=== PATIENT | male | born 1970 | race Caucasian/White ===

== ENCOUNTER → 2017-05-15 10:32 | Outpatient (CLI) | payer MEDICARE ==
[2013-05-26 12:00] VITALS: BMI 27.4
[~2017-05-15 10:32] MED LIST: CYMBALTA30 MG PO; NEURONTIN 300300 MG PO; NORCO 10/325 TA1 TA1 PO; ROBAXIN-750750 MG PO
== END | disposition home or self-care (01) ==
LOC: D.MRI 10:32
DX: M25.511 Pain in right shoulder (principal)

== ENCOUNTER 2017-05-30 09:13 | Day surgery (SDC) | payer MEDICARE ==
[2017-05-29 13:17] VITALS: BP 116/50; BMI 26.2
[2017-05-30 08:45] VITALS: BP 140/92; BMI 26.2
[~2017-05-30 09:13] MED LIST changes: +MOBIC7.5 MG PO; +PERCOCET 10/3251 TA1 PO; +VALIUM10 MG PO
[2017-05-30] MEDS ORDERED: PERCOCET 10/3251 TA1 PO (11:35)
--- NOTE | 2017-05-30 12:07 | NUR ---
1207 PT AWAKENING, OPA REMOVED
--- NOTE | 2017-05-30 13:40 | NUR ---
1235-IV ACCIDENTALLY DISCONTINUED BY PATIENT. COTTON BALL AND BANDAID APPLIED. 1335-DISCHARGE INSTRUCTIONS GIVEN TO PATIENT AND FAMILY. ESCORTED VIA WHEELCHAIR TO PERSONAL CAR, LEFT WITH FAMILY DRIVING.
--- NOTE | 2017-06-22 09:32 | OP ---
PATIENT NAME: WILBUR DRIVER JR MEDICAL RECORD: [id number] :74 LOCATION:[facility] ADMISSION DATE: SURGEON: PADILLA TRAN MD DATE OF OPERATION: 05/30/2017 PREOPERATIVE DIAGNOSIS: Rotator cuff tear of the right shoulder with impingement syndrome and acromioclavicular arthritis. POSTOPERATIVE DIAGNOSIS: Rotator cuff tear of the right shoulder with impingement syndrome and acromioclavicular arthritis. PROCEDURE: Right shoulder arthroscopy with arthroscopic rotator cuff repair, arthroscopic distal clavicle excision, arthroscopic subacromial decompression with acromioplasty and bursectomy. SURGEON: Padilla Tran MD ANESTHESIA: General. INTRAOPERATIVE COMPLICATIONS: None. SUMMARY OF PATHOLOGIC FINDINGS: As predicted by the MRI, the patient had a full-thickness rotator cuff tear as well as impingement syndrome type 3 acromion as well as grade IV acromioclavicular arthritic changes and downward sloping osteophytes. OPERATIVE SUMMARY IN DETAIL: After obtaining the appropriate orthopedic surgery consent as well as anesthetic consultation, evaluation, and clearance, the patient was brought to the operating room and placed on the operating table in supine position. After general laryngeal mask airway was administered, the patient was placed in left lateral decubitus position. All pressure points were well padded to include down leg peroneal pad as well as axillary roll. The patient was held firmly to the operating table using the vacuum pack suction system. The right upper extremity and shoulder were prepped and draped in a routine sterile fashion. The arm was held in the Ar[employer] traction boom at 30 degrees of forward flexion, 30 degrees of abduction, and 10 pounds of traction laterally. Arthroscopy was established in the glenohumeral joint from a posterior portal. Anterior portal was established in the anterior safe interval. Diagnostic arthroscopy showed the patient to have the rotator cuff tear. Transrotator cuff portal was created. Direct debridement of the supraspinatus tendinous footprint onto the articular aspect as well as the fibers of the rotator cuff were taken down. Attention was turned to the subacromial space. While on the subacromial space, a tissue ablation system was utilized to denude the undersurface of the acromion of all soft tissue elements. A 5-0 barrel bur was used to perform acromioplasty at the level of the acromioclavicular joint. At this point, under direct fluoroscopic visualization from anterior portal, distal clavicle was excised for 1 cm. Having completed this, attention was returned to the rotator cuff tear. Further decortication was made in preparation for rotator cuff reapproximation. A single inverted #2 FiberTape was placed and anchored laterally with a 5.5 SwiveLock from [employer]. Having completed this, arthroscopy portals were closed in routine interrupted fashion using 4-0 Prolene. Sterile dressings were applied. The patient was awakened and taken to the recovery room in stable condition. All final sponge and needle OPERATIVE REPORT [id number] WILBUR DRIVER JR counts were correct. TRANSINT:[id number] Voice Confirmation ID: [id number] DOCUMENT ID: [id number] CHELSEA MUHAMMAD, PADILLA ADAIR at 0932 CC: [id number] DICTATION DATE: 06/20/171715 RN CASE MANAGER: 06/20/17 2146 [facility] 05/30/17 [address] [place] [address]
== END 2017-05-30 13:35 | disposition home or self-care (01) ==
LOC: D.OPS 09:13
DX: M75.101 Unspecified rotator cuff tear or rupture of right shoulder, not specified as traumatic (principal); M75.41 Impingement syndrome of right shoulder; F17.200 Nicotine dependence, unspecified, uncomplicated; K21.9 Gastro-esophageal reflux disease without esophagitis; Z01.812 Encounter for preprocedural laboratory examination

== ENCOUNTER 2018-12-24 10:54 | Day surgery (SDC) | payer MEDICARE ==
[~2018-12-24] VITALS: Ht 175.3 cm; Wt 77.1 kg
[2018-12-24 14:30] VITALS: BP 128/102; Ht 175.3 cm; Wt 77.1 kg
[2018-12-24] MEDS ORDERED: HYDROCODON-ACE1 EA10 PO (17:54)
--- NOTE | 2019-01-04 07:51 | OP ---
PATIENT NAME: WILBUR DRIVER JR MEDICAL RECORD: [id number] :74 LOCATION:[facility] ADMISSION DATE: SURGEON: PADILLA TRAN MD DATE OF OPERATION: 12/24/2018 PREOPERATIVE DIAGNOSIS: Medial meniscus tear of the right knee. POSTOPERATIVE DIAGNOSIS: Medial meniscus tear of the right knee. PROCEDURE: Arthroscopic partial medial meniscectomy. SURGEON: Padilla Tran MD ANESTHESIA: General. INTRAOPERATIVE COMPLICATIONS: None. SUMMARY OF PATHOLOGIC FINDINGS: A complex tear of the posterior horn of medial meniscus consistent with preoperative diagnosis. OPERATIVE SUMMARY IN DETAIL: After obtaining the appropriate preoperative orthopedic surgery consent as well as anesthetic consultation, evaluation and clearance, the patient was brought to the operating room and placed on the operating table in supine position. After general laryngeal mask airway was administered, tourniquet was placed about the proximal aspect of the right lower extremity. The right lower extremity was then prepped and draped in routine sterile fashion. The leg was elevated and exsanguinated, tourniquet inflated to 350 mmHg. Routine inferolateral portal was established followed by superomedial portal and inferomedial portal. Diagnostic arthroscopy showed relatively good cartilaginous surface including the medial and lateral compartment as well as patellofemoral joint. The patient did have a complex tear of the posterior horn of the medial meniscus. This was debrided with a combination of meniscotomes as well as arthroscopic resector back to stable meniscal elements. Having completed this, the knee was insufflated with 30 cc of 0.25% Marcaine with epinephrine and 40 mg of Depo-Medrol. Arthroscopy portals were closed in routine interrupted fashion using 4-0 Prolene. Sterile dressings were applied. Tourniquet was deflated. The patient was awakened and taken to recovery room in stable condition. All final needle and sponge counts were correct. TRANSINT:[id number] Voice Confirmation ID: [id number] DOCUMENT ID: [id number] CHELSEA MUHAMMAD, PADILLA ADAIR at 0751 CC: [id number] DICTATION DATE: 01/01/19 1215 DBA: 01/01/19 1555 [facility] 12/24/18 [place] [address]
== END 2018-12-24 19:20 | disposition home or self-care (01) ==
LOC: D.OPS 10:54 → D.PAN 15:25 → D.OPS 16:30 → D.PAN 16:30 → D.OPS 19:20
PROVIDERS: ATTEND Orthopaedic Surgery
DX: S83.241A Other tear of medial meniscus, current injury, right knee, initial encounter (principal); Z01.812 Encounter for preprocedural laboratory examination

== ENCOUNTER 2019-01-28 06:37 | Day surgery (SDC) | payer MEDICARE ==
[~2019-01-28] VITALS: Ht 175.3 cm; Wt 83.9 kg
[~2019-01-28 06:37] MED LIST changes: +GABAPENTIN100 MG PO; +HYDROCODON-ACE1 EA10 PO; -NEURONTIN 300300 MG PO
[2019-01-28 07:58] VITALS: BP 125/63; Ht 175.3 cm; Wt 83.9 kg
[2019-01-28] MEDS ORDERED: HYDROCODON-ACE1 EA10 PO (10:13)
--- NOTE | 2019-01-28 12:10 | NUR ---
DISCHARGED HOME VIA WHEELCHAIR TO PRIVATE VEHICLE WITH SPOUSE
--- NOTE | 2019-02-02 15:00 | OP ---
PATIENT NAME: WILBUR DRIVER JR MEDICAL RECORD: [id number] :74 LOCATION:[facility] ADMISSION DATE: SURGEON: PADILLA TRAN MD DATE OF OPERATION: 01/28/2019 PREOPERATIVE DIAGNOSIS: Medial meniscus tear of the right knee. POSTOPERATIVE DIAGNOSIS: Medial meniscus tear of the right knee. PROCEDURE: Arthroscopic partial medial meniscectomy. SURGEON: Padilla Tran MD ANESTHESIA: General. INTRAOPERATIVE COMPLICATIONS: None. SUMMARY OF PATHOLOGIC FINDINGS: The patient had a complex tear of the posterior horn of the medial meniscus consistent with the preoperative MRI. OPERATIVE SUMMARY IN DETAIL: After obtaining the appropriate preoperative orthopedic surgery consent as well as anesthetic consultation, evaluation, and clearance, the patient was brought to the operating room and placed on the operating table in the supine position. After adequate general laryngeal mask airway was administered, a tourniquet was placed about the proximal aspect of the right lower extremity. The right lower extremity was then prepped and draped in routine sterile fashion. At this point, after the appropriate time-out was done and agreed upon by all, the leg was elevated, exsanguinated, and the tourniquet was inflated to 350 mmHg. Routine inferolateral portal was established, followed by superomedial portal and inferomedial portal. Diagnostic arthroscopy showed the patient to have a complex tear of the posterior horn of the medial meniscus. Combination of meniscotome as well as a resector was utilized to debride the meniscus back to stable meniscal elements. Medial and lateral compartments were essentially pristine as was the patellofemoral joint. The knee was insufflated with 30 cc of 0.25% Marcaine with epinephrine and 40 mg of Depo-Medrol. Arthroscopy portals were closed in routine interrupted fashion using 4-0 Prolene. Sterile dressings were applied. The patient was awakened and taken to the recovery room in stable condition. All final needle and sponge counts were correct. TRANSINT:[id number] Voice Confirmation ID: [id number] DOCUMENT ID: [id number] PADILLA TRAN MD at 1500 CC: [id number] DICTATION DATE: 02/02/19 0852 PERFORMANCE MAKEUP ARTIST: 02/02/19 1008 [facility] 01/28/[address] [place] [address]
== END 2019-01-28 12:10 | disposition home or self-care (01) ==
LOC: D.OPS 06:37 → D.PAN 08:45 → D.OPS 09:45 → D.PAN 10:00 → D.OPS 12:10 → D.PAN 12:25
PROVIDERS: ATTEND Orthopaedic Surgery
DX: S83.206A Unspecified tear of unspecified meniscus, current injury, right knee, initial encounter (principal)